=== PATIENT | male | born 1990 | race Caucasian/White ===

== ENCOUNTER 2019-02-09 16:04 | Inpatient (IN) | payer MEDICAID ==
[~2019-02-09] VITALS: Ht 182.9 cm; Wt 99.8 kg
[2019-02-09 16:07] VITALS: BP 132/78
--- NOTE | 2019-02-09 16:16 | NUR ---
29 Y/O MALE BIBA WITH C/C OF SZ WITNESS BY MOTHER AT HOME. PER MOTHER PATIENT TAKEN TO [facility] THIS MORNING SON CALLED MOTHER STATING NOT FEELING WELL, HAD A SYNCOPE AND SZ AT WORK WHICH WAS TAKEN BY AMBULANCE. PT WAS D/C , AND AT HOME ANOTHER SZ REOCCUR. PT NKA. NO MEDICAL HX. NO MEDS ON REGULAR BASIS. SHEN TONIGHT BUT PT WITH N/V. PER PT SMOKES MARIJUANA. SZ PRECAUTIONS IN PLACE .MOTHER AT BEDSIDE.
[2019-02-09] MEDS ORDERED: LORazepam 2 MG/ML VIAL IVP ONE (16:40)
--- NOTE | 2019-02-09 16:40 | NUR ---
DR. JOYCE AT BEDSIDE
[2019-02-09 17:22] LABS: BASOPHILS # (AUTO) 0.1 K/uL (0.00-0.22); BASOPHILS % (AUTO) 0.6 % (0.0-2.0); EOSINOPHILS # (AUTO) 0.1 K/uL (0-0.4); EOSINOPHILS % (AUTO) 0.3 % (0.0-4.0); HEMATOCRIT 49.4 % (36-52); HEMOGLOBIN 16.6 g/dL (12.0-18.0); LYMPHOCYTES % (AUTO) 18.7 % (20.5-51.1); MEAN CORPUSCULAR HEMOGLOBIN 31 pg (27-31); MEAN CORPUSCULAR HGB CONC 34 g/dL (33-37); MEAN CORPUSCULAR VOLUME 91.3 fL (80-94); MONOCYTES # (AUTO) 1.3 K/uL (0.8-1.0); MONOCYTES % (AUTO) 8.1 % (1.7-9.3); NEUTROPHILS # (AUTO) 11.4 K/uL (1.8-7.7); NEUTROPHILS % (AUTO) 72.3 % (42.2-75.2); PLATELET COUNT (AUTO) 365 K/uL (140-450); RED BLOOD CELL COUNT(AUTO) 5.41 MIL/uL (4.20-6.10); WHITE BLOOD COUNT (AUTO) 15.8 K/uL (4.8-10.8)
[2019-02-09 18:10] LABS: ANION GAP 24.3 (8-16); CARBON DIOXIDE 20.4 mmol/L (21-32); CREATININE 1.4 mg/dL (0.7-1.3); POTASSIUM 3.7 mmol/L (3.5-5.1)
[2019-02-09 18:17] LABS: ALBUMIN 4.7 g/dL (3.4-5.0); TOTAL BILIRUBIN 0.6 mg/dL (0.0-1.0)
--- NOTE | 2019-02-09 18:35 | NUR ---
URINE SAMPLE WALKED TO LABORATORY
[2019-02-09] MEDS ORDERED: NACL 0.9% 1,000 ML IV ONE (18:40)
[2019-02-09 18:43] LABS: APPEARANCE,URINE CLEAR (CLEAR); BILIRUBIN,URINE NEGATIVE (NEGATIVE); BLOOD, URINE 2+ (NEGATIVE); COLOR,URINE YELLOW (YELLOW); LEUKOCYTE ESTERASE ,URINE NEGATIVE (NEGATIVE); NITRITE, URINE NEGATIVE (NEGATIVE); PH,URINE 5.5 (5.0-9.0); UGLUCOSE NEGATIVE (NEGATIVE)
[2019-02-09] MEDS ORDERED: KETOROLAC 15 MG/ML VIAL IVP ONE (18:45)
[2019-02-09 18:48] LABS: BARBITURATE, URINE NEG. ng/ml (NEG <=200); BENZODIAZEPINE, URINE NEG. ng/mL (NEG <=200); CANNABINOID, URINE POS. ng/mL (NEG <=50); COCAINE, URINE POS. ng/mL (NEG <=300); OPIATE, URINE NEG. ng/mL (NEG <=2000); PHENCYCLIDINE SCREEN,URINE NEG. ng/mL (NEG <=25)
[2019-02-09 18:52] LABS: WBC,URINE 0-5 /HPF (0-5)
--- NOTE | 2019-02-09 19:08 | NUR ---
REPORT GIVEN TO ALEXIS PENNINGTON
[2019-02-09] MEDS ORDERED: NACL 0.9% 1,000 ML IV SCH (19:51)
[2019-02-09] MEDS ORDERED: ACETAMINOPHEN 325 MG TAB PO PRN (19:55)
[2019-02-09] MEDS ORDERED: LORazepam 2 MG/ML VIAL IM/IVP PRN (19:55)
[2019-02-09] MEDS ORDERED: ZOLPIDEM 5 MG TAB PO PRN (19:55)
[2019-02-09] MEDS ORDERED: HYDROcodone/APAP 5/325 MG 1 TAB TAB PO PRN (19:55)
[2019-02-09] MEDS ORDERED: ONDANSETRON 4 MG/2 ML VIAL IM/IVP PRN (19:55)
[2019-02-09] MEDS ORDERED: MORPHINE SULFATE 2 MG/ML SYR IVP PRN (19:55)
[2019-02-09] MEDS ORDERED: DOCUSATE SODIUM 100 MG GELCAP PO PRN (19:55)
--- NOTE | 2019-02-09 20:26 | NUR ---
X-Ray at bedside.
[2019-02-09 20:30] VITALS: BP 137/70
--- NOTE | 2019-02-09 20:30 | NUR ---
RECEIVED PT FROM ER NURSE, GORGE. PT CAME IN [facility] AND ABLE TO AMBULATE TO [facility] BED. NO SOB OR ANY RESPIRATORY DISTRESS NOTED ON ROOM AIR. IV SITE ON LAC 20G, PATENT, INTACT, AND ASYMPTOMATIC. SKIN INTACT, WARM AND DRY TO TOUCH. DX: NEW ONSET OF SEIZURES, SEIZURES PRECAUTION IN PLACE. ORIENT ROOM TO PT, INCLUDING HOW TO USE CALL LIGHT. BOARD UPDATED. BED IN LOW POSITION, CALL LIGHT WITHIN REACH.
[2019-02-09 20:38] LABS: MAGNESIUM 1.9 mg/dL (1.8-2.4); PHOSPHORUS 2.1 mg/dL (2.5-4.9); THYROID STIMULATING HORMONE 1.98 uIU/mL (0.34-3.74)
--- NOTE | 2019-02-09 20:40 | NUR ---
PT ADMITTED TO [facility] RM 107A. TRANFERRED PT VIA [facility] WITH NAMAN FELIX; STABLE CONDITION. REPORT GIVEN TO CURRY ESPINOZA. TRANSFER OF CARE AT THIS TIME.
[2019-02-09 20:42] LABS: PROTHROMBIN TIME 9.3 secs (10.8-13.4)
[2019-02-09] MEDS ORDERED: VALPROIC ACID 250 MG/5 ML UDC PO ONE (21:00)
--- NOTE | 2019-02-09 21:26 | NUR ---
GIVEN DEPAKENE AND HUNG FLUID MD ORDERED. PT TOLERATED WELL. WILL CONTINUE TO MONITOR.
--- NOTE | 2019-02-09 23:00 | NUR ---
PT SLEEPING IN BED. NO ACUTE DISTRESS NOTED.
[2019-02-10] VITALS: BP 105/43
--- NOTE | 2019-02-10 00:23 | NUR ---
VS CHECKED, WITHIN PT'S BASELINE, GIVEN NEUTRA-PHOS MD ORDERED. PT TOLERATED WELL.
[2019-02-10] MEDS ORDERED: SODIUM PHOS / POTASSIUM PHOS 1 PKT PDR PO SCH (00:30)
--- NOTE | 2019-02-10 02:15 | NUR ---
PT SLEEPING IN BED. NO ACUTE DISTRESS NOTED.
[2019-02-10 04:00] VITALS: BP 124/47
--- NOTE | 2019-02-10 04:04 | NUR ---
VS CHECKED, WITHIN PT'S BASELINE. WILL CONTINUE TO MONITOR.
[2019-02-10] MEDS ORDERED: VALPROIC ACID 250 MG/5 ML UDC PO SCH (09:00)
[2019-02-10] MEDS ORDERED: DIVALPROEX 500 MG TABEC PO ONE (09:16)
[2019-02-11] MEDS ORDERED: SODIUM PHOS / POTASSIUM PHOS 1 PKT PDR PO SCH (09:00)
[2019-02-11 15:13] LABS: T4 (THYROXINE) 6.6 ug/dL (4.5-12.0)
[2019-02-11 20:11] LABS: ANION GAP 16.1 (8-16); CHOL/HDL RATIO 3.7 (1-4.5); CREATININE 1.1 mg/dL (0.7-1.3); PHOSPHORUS 2.7 mg/dL (2.5-4.9); POTASSIUM 4.1 mmol/L (3.5-5.1)
[2019-02-12 10:39] LABS: BASOPHILS # (AUTO) 0.1 K/uL (0.00-0.22); BASOPHILS % (AUTO) 0.6 % (0.0-2.0); EOSINOPHILS % (AUTO) 0.2 % (0.0-4.0); HEMATOCRIT 46.8 % (36-52); HEMOGLOBIN 15.7 g/dL (12.0-18.0); LYMPHOCYTES % (AUTO) 21.1 % (20.5-51.1); MEAN CORPUSCULAR HEMOGLOBIN 31 pg (27-31); MEAN CORPUSCULAR HGB CONC 34 g/dL (33-37); MEAN CORPUSCULAR VOLUME 90.7 fL (80-94); MONOCYTES # (AUTO) 0.7 K/uL (0.8-1.0); MONOCYTES % (AUTO) 6.9 % (1.7-9.3); NEUTROPHILS # (AUTO) 6.8 K/uL (1.8-7.7); NEUTROPHILS % (AUTO) 71.2 % (42.2-75.2); PLATELET COUNT (AUTO) 288 K/uL (140-450); RED BLOOD CELL COUNT(AUTO) 5.15 MIL/uL (4.20-6.10); RED CELL DISTRIBUTION WIDTH 13.3 % (11.6-13.7); WHITE BLOOD COUNT (AUTO) 9.5 K/uL (4.8-10.8)
== END 2019-02-10 16:55 | disposition home or self-care (01) | DRG 812 ==
LOC: EDBD 16:04 → MED 16:04 → MTU 20:02
PROVIDERS: ADMIT Family Medicine; ATTEND Family Medicine
DX: T40.7X1A Poisoning by cannabis (derivatives), accidental (unintentional), initial encounter (principal); N17.0 Acute kidney failure with tubular necrosis; G92 Toxic encephalopathy; Z79.899 Other long term (current) drug therapy; E66.9 Obesity, unspecified; Z68.29 Body mass index [BMI] 29.0-29.9, adult; D72.829 Elevated white blood cell count, unspecified; F19.10 Other psychoactive substance abuse, uncomplicated; Y92.89 Other specified places as the place of occurrence of the external cause; R56.9 Unspecified convulsions; T40.5X1A Poisoning by cocaine, accidental (unintentional), initial encounter; E86.0 Dehydration
CPT/HCPCS: 36415; 70450; 71045; 80048; 80053; 80305; 81001; 82150; 82550; 82948; 83036; 83690; 83735; 83880; 84100; 84134; 84436; 84443; 84484; 85025; 85610; 85730; 87081; 96361; 96374; 96375; 99285; J1885; J2060; J7030; Q0092